=== PATIENT | female | born 1940 | race Hispanic/Latino ===

== ENCOUNTER 2018-07-17 00:52 | Observation (INO) | payer MEDICARE ==
[2018-07-17 00:52] VITALS: BMI 29.2
--- NOTE | 2018-07-17 01:30 | C.PDOC ---
History Of Present Illness 77 year old female with PMHx COPD, breast CA 2013 (not currently on chemotherapy) for evaluation of malaise, cough. Patient reports she was exposed to her daughter in law who had URI at a wedding in [place]. Patient states upon returning home she started feeling sick, productive cough associated with post tussive emesis. Patient states she always feels SOB, has been using her inhaler and nebulizer at home with no relief. Patient denies fever, chills, nausea, diarrhea, rash, weakness, numbness, CP, palpitations. Time Seen by Provider: 07/17/18 00:56 Chief Complaint (Nursing): Shortness Of Breath History Per: Patient History/Exam Limitations: no limitations Onset/Duration Of Symptoms: Days Current Symptoms Are (Timing): Still Present Initiating Event: Upper Respiratory Illness Quality: "Pain" Exacerbating Factor(s): Coughing Current Respiratory Medications: See Home Med List Associated Symptoms: Productive Cough. denies: Fever, Chills Recent travel outside of the [place]: No Additional History Per: Patient Past Medical History Reviewed: Historical Data, Nursing Documentation, Vital Signs Vital Signs: Last Vital Signs Temp 98 F 07/17/18 01:03 Pulse 80 07/17/18 01:03 Resp 18 07/17/18 01:07 BP 125/85 07/17/18 01:03 Pulse Ox 97 07/17/18 01:07 - Medical History PMH: Anxiety, Asthma, COPD, Fractures (hairline fx. foot no surgery), HTN, Hypercholesterolemia, Malignancy (RT BREAST CANCER), Osteoporosis, Peripheral Edema, Pneumonia (1964) Denies: Chronic Kidney Disease Surgical History: No Surg Hx - [facility] Procedures INSERTION OF TOTALLY IMPLANTABLE VASC ACCESS DEVIC (12/09/13) LYMPHATIC STRUCT BIOPSY (11/05/13) PERCUTAN NEEDLE BIOPSY OF BREAST (11/05/13) THORAX SFT TISS XRAY NEC (12/09/13) UNILAT EXTEN SIMP MASTEC (06/17/14) Family History: States: Unknown Family Hx - Social History Hx Tobacco Use: Yes Hx Alcohol Use: Yes Hx Substance Use: No - Immunization History Hx Tetanus Toxoid Vaccination: No Hx Influenza Vaccination: No Hx Pneumococcal Vaccination: No Review Of Systems Constitutional: Negative for: Fever, Chills ENT: Negative for: Nose Discharge, Nose Congestion Cardiovascular: Negative for: Chest Pain, Palpitations Respiratory: Positive for: Cough, Shortness of Breath, Sputum Gastrointestinal: Positive for: Vomiting. Negative for: Nausea, Abdominal Pain, Diarrhea Skin: Negative for: Rash Neurological: Negative for: Weakness, Numbness, Headache, Dizziness Physical Exam - Physical Exam Appears: Non-toxic, No Acute Distress, Other (comfortable ) Skin: Normal Color, Warm, Dry Head: Atraumatic, Tenderness Eye(s): bilateral: Normal Inspection, PERRL, EOMI Ear(s): Bilateral: Normal Oral Mucosa: Moist Throat: Normal, No Erythema, No Exudate Neck: Normal ROM, Supple Chest: Symmetrical Cardiovascular: Rhythm Regular Respiratory: Decreased Breath Sounds (bilateral lower lobes), No Rales, Rhonchi (scattered ), No Wheezing Gastrointestinal/Abdominal: Bowel Sounds (active), Soft, No Tenderness, No Guar ding, No Rebound Extremity: Normal ROM, No Tenderness, No Swelling Neurological/Psych: Oriented x3, Normal Speech, Normal Cognition Gait: Steady ED Course And Treatment - Laboratory Results Result Diagrams: 07/17/18 01:51 07/17/18 01:51 ECG: Interpreted By Me, Viewed By Me ECG Rhythm: Sinus Rhythm Interpretation Of ECG: Normal axis, normal intervals, no ST elevation Rate From EC (BPM) O2 Sat by Pulse Oximetry: 97 (ON RA) Pulse Ox Interpretation: Normal - Radiology CXR: Interpreted by Me, Viewed By Me CXR Interpretation: Yes: Other (unchanged from prior) Medical Decision Making Medical Decision Making: Plan: * EKG * Labs * CXR * Solumedrol 125 mg IVP * Nebulizer treatment Reassess: Patient still has decreased breath sounds, peak flow was 150. Patient will get another breathing treatment . Tylenol was given patient c/o headache due to coughing. Will repeat CXR Patent not improved after 3 breathing treatments, peak flow went down to 100, patient will be admitted for COPD exacerbation 04:32- paged Hospitalist Dr. Pratt cover for Dr. Lopez Dahl who accepts the patient to be admitted to his service Disposition - Disposition Referrals: Jessie Dahl MD [Primary Care Provider] - Forms: [facility] (Czech) - Scribe Statement The provider has reviewed the documentation as recorded by the Scribe Donavan Macdonald All medical record entries made by the Scribe were at my direction and personally dictated by me. I have reviewed the chart and agree that the record accurately reflects my personal performance of the history, physical exam, medical decision making, and the department course for this patient. I have also personally directed, reviewed, and agree with the discharge instructions and disposition.
[2018-07-17 01:54] LABS: BASO # 0.1 K/uL (0.0-0.2); BASO % 0.9 % (0.0-2.0); EOS # 0.8 K/uL (0.0-0.7); EOS % 13.8 % (0.0-4.0); HEMOGLOBIN 14.3 g/dL (11.0-16.0); LYMPH # 1.6 K/uL (1.0-4.3); LYMPH % 28.3 % (20.0-40.0); MEAN CELL VOLUME 97.2 fL (81.0-99.0); MEAN CORPUSCULAR HEMOGLOBIN 33.2 pg (27.0-31.0); MEAN CORPUSCULAR HGB CONC 34.1 g/dL (33.0-37.0); MEAN PLATELET VOLUME 7.9 fL (7.2-11.7); MONO # 0.6 K/uL (0.0-0.8); MONO % 11.2 % (0.0-10.0); NEUT # 2.5 K/uL (1.8-7.0); NEUT % 45.8 % (50.0-75.0); NRBC % 0.1 % (0.0-2.0); RBC 4.32 Mil/uL (3.80-5.20); RED CELL DISTRIBUTION WIDTH 14.2 % (11.5-14.5); WHITE BLOOD COUNT 5.6 K/uL (4.8-10.8)
[2018-07-17 02:06] LABS: ALB/GLOB RATIO 1.5 (1.0-2.1); ALBUMIN 4.3 g/dL (3.5-5.0); ALT/SGPT 32 U/L (9-52); AST/SGOT 25 U/L (14-36); BLOOD UREA NITROGEN 14 mg/dL (7-17); CALCIUM 9.1 mg/dl (8.6-10.4); GFR NON-AFRICAN AMERICAN > 60
[2018-07-17] MEDS ORDERED: Albuterol-Ipratrop 3 mg / 0.5 (3 ml) UD INH STA ×3 (02:07→03:12)
[2018-07-17] MEDS ORDERED: Albuterol-Ipratrop 3 mg / 0.5 (3 ml) UD ONE ×2 (02:10→03:09)
[2018-07-17 02:29] LABS: B-TYPE NATRIURETIC PEPTIDE 47.1 pg/mL (0-900)
--- NOTE | 2018-07-17 05:05 | CP.PCM.HP ---
<Lashae Gallegos P - Last Filed: 07/17/18 10:10> History of Present Illness - History of Present Illness History of Present Illness: H&P for hospitalist service: HPI:77 year old female with PMHx of COPD, HTN, HLD, and R breast cancer presents to ED with complaint of cough for the past month after exposure to a family member with a URI. Cough is productive, initially green sputum, now clear. Cough worsens with laying down and on exertion. Associated symptoms include headache, post-tussive emesis, and bilateral leg weakness. Patient states she is chronically short of breath. Patient has been to her PMD twice in the past month for these symptoms and has been prescribed nebulizer treatments and cough syrup, as well as tried numerous OTC medication without improvement. Patient denies fev er, chills, diaphoresis, dizziness, chest pain, palpitations, cough, and abdominal pain. PMHx: COPD, HTN, HLD, R breast cancer s/p mastectomy, spinal stenosis PSHx: R mastectomy 2013, cataract surgery b/l Meds: Atorvastatin 10mg once daily, Montelukast 10mg once a day, amlodipine/Benazepril 5/50mg once daily, Anastrozole 10mg PO daily, Breo Ellipta 110mcg/25 mcg one puff daily, Ventalin inhaler 2puffs Q6H, L-Lysine 100mg, B complex vatamin, Vitamin D 800mg daily, Magnesium 200mg daily, Ecotrin 81mg Daily, Vatamin D 25mg daily, Aleve gels 440mg once daily for pain. Allergies: NKDA Family Hx: Breast cancer in mother and sisters, Social: former smoker 1ppd for 55 years, quit 4 years ago. Drinks 3 wine spritzers daily, denies drug use. Retired. Walks with a walker. PMD: Dr. Lopez Dahl Code status: Patient states she would like everything done only if there is a chance of recovery. Proxy: SonCorby- number unknown. Present on Admission - Present on Admission Any Indicators Present on Admission: No Review of Systems - Constitutional Constitutional: Headache, Weakness (bilateral leg). absent: Chills, Excessive Sweating, Fever, Night Sweats - EENT Eyes: absent: Change in Vision, Irritation Nose/Mouth/Throat: Dry Mouth. absent: Nasal Congestion, Nasal Discharge, Bleeding Gums - Cardiovascular Cardiovascular: absent: Chest Pain, Chest Pain at Rest, Claudication, Pain Radiating to Arm/Neck/Jaw, Leg Edema - Respiratory Respiratory: Cough, Dyspnea, Dyspnea on Exertion. absent: Hemoptysis - Gastrointestinal Gastrointestinal: Hematochezia. absent: Bloating, Change in Bowel Habits, Cramping, Diarrhea, Loose Stools - Genitourinary Genitourinary: Urinary Incontinence (chronic). absent: Difficulty Urinating, Dysuria, Hematuria - Musculoskeletal Musculoskeletal: absent: Joint Swelling, Myalgias, Numbness - Integumentary Integumentary: absent: Rash, Unusual Bruising, Jaundice - Neurological Neurological: absent: Abnormal Hearing, Abnormal Speech, Dizziness, Numbness, Focal Weakness, Headaches, Loss of Vision Past Patient History - Infectious Disease Hx of Infectious Diseases: None - Past Medical History & Family History Past Medical History?: Yes - Past Social History Smoking Status: Never Smoked - CARDIAC Hx Hypercholesterolemia: Yes Hx Hypertension: Yes Hx Peripheral Edema: Yes - PULMONARY Hx Asthma: Yes Hx Chronic Obstructive Pulmonary Disease (COPD): Yes Hx Pneumonia: Yes (1963) - NEUROLOGICAL Hx Neurological Disorder: No - HEENT Hx HEENT Problems: No - RENAL Hx Chronic Kidney Disease: No - ENDOCRINE/METABOLIC Hx Endocrine Disorders: No - HEMATOLOGICAL/ONCOLOGICAL Hx Cancer: Yes (RT BREAST CA WITH CHEMO AND RADIATION) - INTEGUMENTARY Hx Dermatological Problems: No - MUSCULOSKELETAL/RHEUMATOLOGICAL Hx Fractures: Yes (hairline fx. foot no surgery) Hx Osteoporosis: Yes - GASTROINTESTINAL Hx Gastrointestinal Disorders: No - GENITOURINARY/GYNECOLOGICAL Hx Genitourinary Disorders: No - PSYCHIATRIC Hx Anxiety: Yes Hx Substance Use: No - SURGICAL HISTORY Hx Surgeries: Yes Hx Mastectomy: Yes (RT) - ANESTHESIA Hx Anesthesia: Yes Hx Anesthesia Reactions: No Hx Malignant Hyperthermia: No Meds Allergies/Adverse Reactions: Allergies Allergy/AdvReac Type Severity Reaction Status Date / Time No Known Allergies Allergy Verified 12/04/13 13:47 Physical Exam - Constitutional Appears: Non-toxic, No Acute Distress, Other (smells of alcohol) - Head Exam Head Exam: ATRAUMATIC, NORMOCEPHALIC - Eye Exam Eye Exam: EOMI, Normal appearance, PERRL - ENT Exam ENT Exam: Mucous Membranes Dry - Neck Exam Neck exam: Positive for: Full Rom, Normal Inspection - Respiratory Exam Respiratory Exam: Decreased Breath Sounds. absent: Rales, Rhonchi, Wheezes, Respiratory Distress - Cardiovascular Exam Cardiovascular Exam: RRR, +S1, +S2. absent: Systolic Murmur - GI/Abdominal Exam GI & Abdominal Exam: Normal Bowel Sounds, Soft. absent: Guarding, Rigid, Tenderness - Extremities Exam Extremities exam: Positive for: normal capillary refill, pedal edema (trace pit ting edema bilater LE), pedal pulses present. Negative for: calf tenderness, tenderness - Neurological Exam Neurological exam: Alert, CN II-XII Intact, Oriented x3 - Psychiatric Exam Psychiatric exam: Normal Affect, Normal Mood - Skin Skin Exam: Dry, Intact, Normal Color, Warm Results - Vital Signs Recent Vital Signs: Last Vital Signs Temp 97.8 F 07/17/18 04:22 Pulse 91 H 07/17/18 04:22 Resp 20 07/17/18 04:22 BP 105/59 L 07/17/18 04:22 Pulse Ox 97 07/17/18 04:34 - Labs Result Diagrams: 07/17/18 01:51 07/17/18 01:51 Labs: Laboratory Results - last 24 hr 07/17/18 07/17/18 01:51 01:51 WBC 5.6 RBC 4.32 Hgb 14.3 Hct 42.0 MCV 97.2 MCH 33.2 H MCHC 34.1 RDW 14.2 Plt Count 244 MPV 7.9 Neut % (Auto) 45.8 L Lymph % (Auto) 28.3 [place] % (Auto) 11.2 H Eos % (Auto) 13.8 H Baso % (Auto) 0.9 Neut # (Auto) 2.5 Lymph # (Auto) 1.6 [place] # (Auto) 0.6 Eos # (Auto) 0.8 H Baso # (Auto) 0.1 Sodium 142 Potassium 4.3 Chloride 105 Carbon Dioxide 25 Anion Gap 16 BUN 14 Creatinine 0.7 Est GFR ( Amer) > 60 Est GFR (Non-Af Amer) > 60 Random Glucose 100 Calcium 9.1 Magnesium 2.1 Total Bilirubin 1.2 AST 25 ALT 32 Alkaline Phosphatase 91 Troponin I < 0.0120 NT-Pro-B Natriuret Pep 47.1 Total Protein 7.2 Albumin 4.3 Globulin 2.9 Albumin/Globulin Ratio 1.5 Assessment & Plan - Assessment and Plan (Free Text) Plan: 77 year old female with PMHx of COPD, HTN, HLD, spinal stenosis, and R breast cancer admitted for COPD exacerbation. COPD Exacerbation -Duonebs RQ4H PRN -Methylprednisolone 40mg IVP Q6H -Breo Ellipta 1puff daily, home med -Albuterol HFA 2 puff INH RQ6, home med -Montelukast 10mg PO HS, home med Hypertension -Amlodipine 5mg PO daily, home med -Enalopril 10mg daily, substitute for home med of Benazepril 20mg daily Hyperlipidemia -Crestor 5mg PO HS, substitute for home med of Atorvastatin 10mg daily Hx of R Breast Cancer -anastrozole 1mg daily, home med -s/p mastectomy 2013 Hx of Spinal Stenosis -Naproxen 275mg PO daily PRN Hx of Alcohol use -3 wine spritzers daily -Denies hx of withdrawal -Lorazepam 1mg IVP Q6H PRN -Thiamine 100mg PO daily -Vitamin B complex/Folic acid 1 tab PO daily -CIWA Prophylaxis -Heparin 5000u SC Q8 -cyanocobalamin 100mcg daily, home med -Aspirin 81mg daily, home med Case discussed with attending, Dr. Pratt. <Ricardo Pratt - Last Filed: 07/19/18 19:15> Results - Vital Signs Recent Vital Signs: Last Vital Signs Temp 98.5 F 07/18/18 16:42 Pulse 85 07/18/18 16:42 Resp 20 07/18/18 16:42 BP 128/76 07/18/18 16:42 Pulse Ox 93 L 07/18/18 16:42 - Labs Result Diagrams: 07/18/18 07:36 07/18/18 07:36 Assessment & Plan - Date & Time Date: 07/19/18 (I have seen and examined the patient. I agree with the findings and plan of care as documented by Dr. Gallegos. Patient with COPD exacerbation. Continue home meds. Solumedrol. Nebs. Oxygen as needed. Monitor for acute changes.) Time: 19:14 Attending/Attestation - Attestation I have personally seen and examined this patient.: Yes I have fully participated in the care of the patient.: Yes I have reviewed all pertinent clinical information: Yes
[2018-07-17] MEDS ORDERED: Albuterol-Ipratrop 3 mg / 0.5 (3 ml) UD INH PRN (06:00)
[2018-07-17] MEDS ORDERED: Naproxen 275 mg Tab PO PRN (06:05)
[2018-07-17] MEDS: MethylPREDNISolone 40 mg Vial IVP SCH ×3 (06:23→21:42)
--- NOTE | 2018-07-17 07:39 | RAD ---
Date of service: 07/17/2018 PROCEDURE: CHEST RADIOGRAPH, 1 VIEW HISTORY: SOB COMPARISON: 02/18/2015 FINDINGS: LUNGS: Clear. Study markedly rotated towards the right-accentuating left infrahilar bronchovascular markings PLEURA: No pneumothorax or pleural fluid seen. CARDIOVASCULAR: There is presence of aortic atherosclerotic calcification on x-ray. Heart size normal No pulmonary venous congestion left subclavian port tip superior vena cava OSSEOUS STRUCTURES: Cervical apophyseal joint arthrosis. Thoracic spondylosis. VISUALIZED UPPER ABDOMEN: Normal. OTHER FINDINGS: None. IMPRESSION: No interval pathology noted.
--- NOTE | 2018-07-17 07:42 | CP.PCM.PN ---
<Brian Kat - Last Filed: 07/17/18 19:59> Subjective - Date & Time of Evaluation Date of Evaluation: 07/17/18 Time of Evaluation: 07:42 - Subjective Subjective: Progress note for Hospitalist service Patient seen and examined at bedside. She states that she no longer feels short of breath but continues to have a cough. She states she would like to go home as soon as possible since she helps to care for her son. She states that all her symptoms with her cough started after she got sick at a wedding in [place]. She states that she has had stress incontinence when she coughs. She denies fevers, chills, dizziness, lightheadedness, chest pain, palpitations, abdominal pain, nausea, vomiting ,diarrhea, calf pain or swelling. Objective - Vital Signs/Intake and Output Vital Signs (last 24 hours): Temp Pulse Resp BP Pulse Ox 97.8 F 100 H 20 105/59 L 95 07/17/18 04:22 07/17/18 05:24 07/17/18 04:22 07/17/18 04:22 07/17/18 05:08 - Medications Medications: Current Medications Albuterol (Ventolin Hfa 90 Mcg/Actuation (8 G)) 2 puff INH RQ6 [facility] Albuterol/Ipratropium (Duoneb 3 Mg/0.5 Mg (3 Ml) Ud) 3 ml INH RQ4 PRN PRN Reason: Shortness of Breath Amlodipine Besylate (Norvasc) 5 mg PO DAILY [facility] Anastrozole (Arimidex 1 Mg Tab) 1 mg PO DAILY [facility] Aspirin (Aspirin Chewable) 81 mg PO DAILY [facility] Cyanocobalamin (Vitamin B12 100 Mcg Tab) 100 mcg PO DAILY [facility] Fluticasone/Vilanterol (Breo Ellipta 100-25 Mcg Inh) 1 puff INH RQD [facility] Heparin Sodium (Porcine) (Heparin) 5,000 units SC Q8 [facility] Last Admin: 07/17/18 06:24 Dose: 5,000 units Influenza Virus Vaccine (Fluzone Quad 1146-7602) 60 mcg IM .ONCE ONE Stop: 07/19/18 10:01 Lorazepam (Ativan) 1 mg PO Q6H PRN; Taper PRN Reason: EtOH Withdrawall Stop: 07/22/18 07:59 Methylprednisolone (Solu-Medrol) 40 mg IVP Q6 [facility] Last Admin: 07/17/18 06:23 Dose: 40 mg Montelukast Sodium (Singulair) 10 mg PO HS [facility] Naproxen (Anaprox) 275 mg PO DAILY PRN PRN Reason: Pain, moderate (4-7) Rosuvastatin Calcium (Crestor) 5 mg PO HS [facility] Thiamine HCl (Vitamin B1 Tab) 100 mg PO DAILY [facility] Vitamin B Complex/Folic Acid (Berroca) 1 tab PO DAILY [facility] - Labs Labs: 07/17/18 01:51 07/17/18 01:51 - Constitutional Appears: No Acute Distress - Head Exam Head Exam: ATRAUMATIC, NORMAL INSPECTION - Eye Exam Eye Exam: EOMI - ENT Exam ENT Exam: Mucous Membranes Dry - Neck Exam Neck Exam: Full ROM - Respiratory Exam Respiratory Exam: Decreased Breath Sounds. absent: Rales, Rhonchi, Wheezes, Res piratory Distress, Stridor - Cardiovascular Exam Cardiovascular Exam: REGULAR RHYTHM, +S1, +S2. absent: Gallop, Rubs, Murmur - GI/Abdominal Exam GI & Abdominal Exam: Soft, Normal Bowel Sounds. absent: Firm, Guarding, Rigid, Tenderness, Organomegaly - Extremities Exam Extremities Exam: Normal Capillary Refill. absent: Calf Tenderness, Pedal Edema, Tenderness - Back Exam Back Exam: absent: CVA tenderness (L), CVA tenderness (R) - Neurological Exam Neurological Exam: Alert, Awake, Oriented x3 - Psychiatric Exam Psychiatric exam: Normal Affect, Normal Mood - Skin Skin Exam: Dry, Intact, Warm Additional comments: subdermal port on left upper chest Assessment and Plan - Assessment and Plan (Free Text) Plan: Plan: 77 year old female with PMHx of COPD, HTN, HLD, spinal stenosis, and R breast cancer status admitted for COPD exacerbation. Shortness of breath, likely COPD Exacerbation - Duonebs RQ4H PRN - Solumedrol 40mg IVP Q8H - Breo Ellipta 1puff daily, home med - Albuterol HFA 2 puff INH RQ6, home med - Montelukast 10mg PO HS, home med - Zithromax 500mg IV Q24 Hypertension - Amlodipine 5mg PO daily, home med - Enalapril 10mg daily, substitute for home med of Benazepril 20mg daily - ASA 81mg PO Hyperlipidemia - Crestor 5mg PO HS, substitute for home med of Atorvastatin 10mg daily Hx of R Breast Cancer - anastrozole 1mg daily, home med - s/p right mastectomy 2013 Hx of Spinal Stenosis -Naproxen 275mg PO daily PRN Hx of Alcohol use -3 wine spritzers daily -Denies hx of withdrawal -Lorazepam 1mg IVP Q6H PRN -Thiamine 100mg PO daily -Vitamin B complex/Folic acid 1 tab PO daily -CIWA protocol Prophylaxis -Heparin 5000u SC Q8 Case discussed with Dr. Alan Kat, PGY1 <Chris Phillips - Last Filed: 07/18/18 16:44> Objective - Vital Signs/Intake and Output Vital Signs (last 24 hours): Temp Pulse Resp BP Pulse Ox 97.6 F 95 H 20 110/70 92 L 07/18/18 08:06 07/18/18 16:03 07/18/18 08:06 07/18/18 11:01 07/18/18 13:04 Intake and Output: 07/18/18 07/18/18 06:59 18:59 Intake Total 500 Balance 500 - Medications Medications: Current Medications Albuterol (Ventolin Hfa 90 Mcg/Actuation (8 G)) 2 puff INH RQ6 [facility] Last Admin: 07/18/18 13:40 Dose: 2 puff Albuterol/Ipratropium (Duoneb 3 Mg/0.5 Mg (3 Ml) Ud) 3 ml INH RQ4 PRN PRN Reason: Shortness of Breath Amlodipine Besylate (Norvasc) 5 mg PO DAILY [facility] Last Admin: 07/18/18 10:58 Dose: 5 mg Anastrozole (Arimidex 1 Mg Tab) 1 mg PO DAILY [facility] Last Admin: 07/18/18 11:04 Dose: 1 mg Aspirin (Aspirin Chewable) 81 mg PO DAILY [facility] Last Admin: 07/18/18 10:59 Dose: 81 mg Cyanocobalamin (Vitamin B12 100 Mcg Tab) 100 mcg PO DAILY [facility] Last Admin: 07/18/18 10:58 Dose: 100 mcg Enalapril Maleate (Vasotec) 10 mg PO DAILY [facility] Last Admin: 07/18/18 11:01 Dose: Not Given Fluticasone/Vilanterol (Breo Ellipta 100-25 Mcg Inh) 1 puff INH RQD [facility] Last Admin: 07/18/18 07:58 Dose: 1 puff Heparin Sodium (Porcine) (Heparin) 5,000 units SC Q8 [facility] Last Admin: 07/18/18 14:12 Dose: 5,000 units Azithromycin (Zithromax 500mg In Ns Addvantage) 500 mg in 250 mls @ 167 mls/hr IVPB Q24H [facility]; Protocol Last Admin: 07/17/18 18:34 Dose: 167 mls/hr Lorazepam (Ativan) 1 mg PO Q6 PRN; Taper PRN Reason: EtOH Withdrawall Stop: 07/22/18 07:59 Methylprednisolone (Solu-Medrol) 40 mg IVP Q8 [facility] Last Admin: 07/18/18 14:12 Dose: 40 mg Montelukast Sodium (Singulair) 10 mg PO HS [facility] Last Admin: 07/17/18 21:41 Dose: 10 mg Naproxen (Anaprox) 275 mg PO DAILY PRN PRN Reason: Pain, moderate (4-7) Rosuvastatin Calcium (Crestor) 5 mg PO HS [facility] Last Admin: 07/17/18 21:41 Dose: 5 mg Thiamine HCl (Vitamin B1 Tab) 100 mg PO DAILY [facility] Last Admin: 07/18/18 10:59 Dose: 100 mg Vitamin B Complex/Folic Acid (Berroca) 1 tab PO DAILY [facility] Last Admin: 07/18/18 10:58 Dose: 1 tab - Labs Labs: 07/18/18 07:36 07/18/18 07:36 Attending/Attestation - Attestation I have personally seen and examined this patient.: Yes I have fully participated in the care of the patient.: Yes I have reviewed all pertinent clinical information, including history, physical exam and plan: Yes Notes (Text): seen and examined. COPD exacerbation continue antibiotics and solu medrol patient is hypoxic off oxygen continue oxygen and bronchodilators I agree with the resident's documentation
[2018-07-17] MEDS ORDERED: Fluticasone-Vilanterol 100/25mcg Diskus INH SCH (08:00)
[2018-07-17] MEDS: Albuterol HFA 90 mcg/actuation (8 g) INH SCH (09:00)
[2018-07-17] MEDS ORDERED: Azithromycin 500mg/250ML NS 500 MG/250 ML BAG IVPB SCH (19:00)
[2018-07-18] MEDS: Albuterol HFA 90 mcg/actuation (8 g) INH SCH ×3 (01:46→13:40)
[2018-07-18] MEDS: MethylPREDNISolone 40 mg Vial IVP SCH ×2 (05:39→14:12)
[2018-07-18 07:57] LABS: BASO % 0.3 % (0.0-2.0); HEMOGLOBIN 13.6 g/dL (11.0-16.0); LYMPH # 0.8 K/uL (1.0-4.3); LYMPH % 8.7 % (20.0-40.0); MEAN CELL VOLUME 96.1 fL (81.0-99.0); MEAN CORPUSCULAR HEMOGLOBIN 32.5 pg (27.0-31.0); MEAN CORPUSCULAR HGB CONC 33.8 g/dL (33.0-37.0); MEAN PLATELET VOLUME 8.7 fL (7.2-11.7); MONO # 0.4 K/uL (0.0-0.8); MONO % 4.7 % (0.0-10.0); NEUT # 7.7 K/uL (1.8-7.0); NEUT % 86.3 % (50.0-75.0); PLATELET COUNT 229 K/uL (130-400); RBC 4.18 Mil/uL (3.80-5.20); RED CELL DISTRIBUTION WIDTH 14.3 % (11.5-14.5)
[2018-07-18 08:00] LABS: WHITE BLOOD COUNT 8.9 K/uL (4.8-10.8)
[2018-07-18 08:07] VITALS: RESP 20
[2018-07-18 08:17] LABS: ALB/GLOB RATIO 1.4 (1.0-2.1); ALBUMIN 3.8 g/dL (3.5-5.0); ALT/SGPT 33 U/L (9-52); AST/SGOT 17 U/L (14-36); BLOOD UREA NITROGEN 17 mg/dL (7-17); CALCIUM 8.9 mg/dl (8.6-10.4); GFR NON-AFRICAN AMERICAN > 60
[2018-07-18 09:01] LABS: LYMPHOCYTE 8 % (20-40); MONOCYTE 6 % (0-10); NEUTROPHIL 86 % (50-75); TOTAL CELLS COUNTED 100
[2018-07-18 09:02] LABS: PLATELET ESTIMATE NORMAL (NORMAL)
--- NOTE | 2018-07-18 09:24 | CP.PCM.PN ---
Subjective - Date & Time of Evaluation Date of Evaluation: 07/18/18 Time of Evaluation: 09:24 Objective - Vital Signs/Intake and Output Vital Signs (last 24 hours): Temp Pulse Resp BP Pulse Ox 97.6 F 76 20 108/66 95 07/18/18 08:06 07/18/18 08:06 07/18/18 08:06 07/18/18 08:06 07/18/18 08:06 Intake and Output: 07/18/18 07/18/18 06:59 18:59 Intake Total 500 Balance 500 - Medications Medications: Current Medications Albuterol (Ventolin Hfa 90 Mcg/Actuation (8 G)) 2 puff INH RQ6 [facility] Last Admin: 07/18/18 07:59 Dose: 2 puff Albuterol/Ipratropium (Duoneb 3 Mg/0.5 Mg (3 Ml) Ud) 3 ml INH RQ4 PRN PRN Reason: Shortness of Breath Amlodipine Besylate (Norvasc) 5 mg PO DAILY [facility] Last Admin: 07/17/18 10:59 Dose: 5 mg Anastrozole (Arimidex 1 Mg Tab) 1 mg PO DAILY [facility] Last Admin: 07/17/18 13:07 Dose: 1 mg Aspirin (Aspirin Chewable) 81 mg PO DAILY [facility] Last Admin: 07/17/18 10:59 Dose: 81 mg Cyanocobalamin (Vitamin B12 100 Mcg Tab) 100 mcg PO DAILY [facility] Last Admin: 07/17/18 10:59 Dose: 100 mcg Enalapril Maleate (Vasotec) 10 mg PO DAILY [facility] Last Admin: 07/17/18 10:59 Dose: 10 mg Fluticasone/Vilanterol (Breo Ellipta 100-25 Mcg Inh) 1 puff INH RQD [facility] Last Admin: 07/18/18 07:58 Dose: 1 puff Heparin Sodium (Porcine) (Heparin) 5,000 units SC Q8 [facility] Last Admin: 07/18/18 05:38 Dose: 5,000 units Azithromycin (Zithromax 500mg In Ns Addvantage) 500 mg in 250 mls @ 167 mls/hr IVPB Q24H [facility]; Protocol Last Admin: 07/17/18 18:34 Dose: 167 mls/hr Influenza Virus Vaccine (Fluzone Quad [id number]) 60 mcg IM .ONCE ONE Stop: 07/19/18 10:01 Lorazepam (Ativan) 1 mg PO Q6 PRN; Taper PRN Reason: EtOH Withdrawall Stop: 07/22/18 07:59 Methylprednisolone (Solu-Medrol) 40 mg IVP Q8 [facility] Last Admin: 07/18/18 05:39 Dose: 40 mg Montelukast Sodium (Singulair) 10 mg PO HS [facility] Last Admin: 07/17/18 21:41 Dose: 10 mg Naproxen (Anaprox) 275 mg PO DAILY PRN PRN Reason: Pain, moderate (4-7) Rosuvastatin Calcium (Crestor) 5 mg PO HS [facility] Last Admin: 07/17/18 21:41 Dose: 5 mg Thiamine HCl (Vitamin B1 Tab) 100 mg PO DAILY [facility] Last Admin: 07/17/18 10:59 Dose: 100 mg Vitamin B Complex/Folic Acid (Berroca) 1 tab PO DAILY [facility] Last Admin: 07/17/18 10:59 Dose: 1 tab - Labs Labs: 07/18/18 07:36 07/18/18 07:36
[2018-07-18] MEDS ORDERED: Influenza Vaccine 60 MCG/0.5 ML SYR (3 yr & up) IM ONE (15:40)
[2018-07-18 16:43] VITALS: BP 128/76; PULSE 85; TEMP 98.5; O2SAT 93
--- NOTE | 2018-07-18 17:09 | CP.PCM.DIS ---
<Brian Kat - Last Filed: 07/18/18 20:07> Provider - Provider Date of Admission: 07/17/18 04:32 Attending physician: Ricardo Pratt MD Primary care physician: Jessie Dahl MD Time Spent in preparation of Discharge (in minutes): 35 Hospital Course - Lab Results Lab Results: Most Recent Lab Values WBC 8.9 K/uL (4.8-10.8) D 07/18/18 07:36 RBC 4.18 Mil/uL (3.80-5.20) 07/18/18 07:36 Hgb 13.6 g/dL (11.0-16.0) 07/18/18 07:36 Hct 40.2 % (34.0-47.0) 07/18/18 07:36 MCV 96.1 fL (81.0-99.0) 07/18/18 07:36 MCH 32.5 pg (27.0-31.0) H 07/18/18 07:36 MCHC 33.8 g/dL (33.0-37.0) 07/18/18 07:36 RDW 14.3 % (11.5-14.5) 07/18/18 07:36 Plt Count 229 K/uL (130-400) 07/18/18 07:36 MPV 8.7 fL (7.2-11.7) 07/18/18 07:36 Neut % (Auto) 86.3 % (50.0-75.0) H 07/18/18 07:36 Lymph % (Auto) 8.7 % (20.0-40.0) L 07/18/18 07:36 Moody % (Auto) 4.7 % (0.0-10.0) 07/18/18 07:36 Eos % (Auto) 0.0 % (0.0-4.0) 07/18/18 07:36 Baso % (Auto) 0.3 % (0.0-2.0) 07/18/18 07:36 Neut # (Auto) 7.7 K/uL (1.8-7.0) H 07/18/18 07:36 Lymph # (Auto) 0.8 K/uL (1.0-4.3) L 07/18/18 07:36 Moody # (Auto) 0.4 K/uL (0.0-0.8) 07/18/18 07:36 Eos # (Auto) 0.0 K/uL (0.0-0.7) 07/18/18 07:36 Baso # (Auto) 0.0 K/uL (0.0-0.2) 07/18/18 07:36 Neutrophils % (Manual) 86 % (50-75) H 07/18/18 07:36 Lymphocytes % (Manual) 8 % (20-40) L 07/18/18 07:36 Monocytes % (Manual) 6 % (0-10) 07/18/18 07:36 Platelet Estimate Normal (NORMAL) 07/18/18 07:36 RBC Morphology Normal 07/18/18 07:36 Sodium 137 mmol/L (132-148) 07/18/18 07:36 Potassium 4.0 mmol/L (3.6-5.2) 07/18/18 07:36 Chloride 106 mmol/L (98-107) 07/18/18 07:36 Carbon Dioxide 22 mmol/L (22-30) 07/18/18 07:36 Anion Gap 13 (10-20) 07/18/18 07:36 BUN 17 mg/dL (7-17) 07/18/18 07:36 Creatinine 0.6 mg/dL (0.7-1.2) L 07/18/18 07:36 Est GFR ( Amer) > 60 07/18/18 07:36 Est GFR (Non-Af Amer) > 60 07/18/18 07:36 Random Glucose 145 mg/dL (65-105) H 07/18/18 07:36 Calcium 8.9 mg/dl (8.6-10.4) 07/18/18 07:36 Phosphorus 4.0 mg/dL (2.5-4.5) 07/18/18 07:36 Magnesium 2.3 mg/dL (1.6-2.3) 07/18/18 07:36 Total Bilirubin 1.1 mg/dL (0.2-1.3) 07/18/18 07:36 AST 17 U/L (14-36) 07/18/18 07:36 ALT 33 U/L (9-52) 07/18/18 07:36 Alkaline Phosphatase 92 U/L (38-126) 07/18/18 07:36 Troponin I < 0.0120 ng/mL (0.00-0.120) 07/17/18 01:51 NT-Pro-B Natriuret Pep 47.1 pg/mL (0-900) 07/17/18 01:51 Total Protein 6.4 g/dL (6.3-8.3) 07/18/18 07:36 Albumin 3.8 g/dL (3.5-5.0) 07/18/18 07:36 Globulin 2.6 gm/dL (2.2-3.9) 07/18/18 07:36 Albumin/Globulin Ratio 1.4 (1.0-2.1) 07/18/18 07:36 - Hospital Course Hospital Course: On admission: HPI:77 year old female with PMHx of COPD, HTN, HLD, and R breast cancer presents to ED with complaint of cough for the past month after exposure to a family member with a URI. Cough is productive, initially green sputum, now clear. Cough worsens with laying down and on exertion. Associated symptoms include headache, post-tussive emesis, and bilateral leg weakness. Patient states she is chronically short of breath. Patient has been to her PMD twice in the past month for these symptoms and has been prescribed nebulizer treatments and cough syrup, as well as tried numerous OTC medication without improvement. Patient denies fever, chills, diaphoresis, dizziness, chest pain, palpitations, cough, and abdominal pain. Hospital course: Patient was admitted for evaluation of shortness of breath, likely COPD exacerbation. Patient was given Solumedrol, Duonebs, Breo/Ellipta, Montelukast, Zithromax with improvement of her symptoms. She remained afebrile and was not noted to have elevated white count. BNP was not elevated at 47, and troponin x1 was negative. On discharge, she was able to walk without experiencing shortness of breath or drop in oxygen saturation. For her history of hypertension, she was continued on her home dose of Amlodipine and Enalapril. She also received ASA 81mg daily. She was treated with Crestor for her hyperlipidemia. Given her history of breast cancer, she was continued on Anastrozole. Patient admitted to drinking 3 wine spritzers daily, however did not experience any withdrawal symptoms during hospitalization. Patient was placed on CIWA protocol and given Thiamine, Folic acid. On discharge, patient was medically stable and stated she no longer experienced shortness of breath or chest pain. Discharge instructions: Please follow up with your primary care provider Dr. Lopez Dahl in 2 weeks for further evaluation. You may continue your home medications. Please return to the ED if you experience chest pain, shortness of breath, palpitations. Please follow up with your Oncologist Dr. Cortes for your history of breast cancer. Prescriptions: Zithromax 500mg by mouth once daily for 5 days. Disp # 5 (five) Prednisone 20mg by mouth once daily for 5 days. Disp #5 (five) Discharge Exam - Head Exam Head Exam: ATRAUMATIC, NORMAL INSPECTION - Eye Exam Eye Exam: EOMI - ENT Exam ENT Exam: Mucous Membranes Moist - Respiratory Exam Respiratory Exam: Decreased Breath Sounds. absent: Rales, Rhonchi, Wheezes, Respiratory Distress, Stridor Additional comments: subdermal port in left chest wall - Cardiovascular Exam Cardiovascular Exam: REGULAR RHYTHM, +S1, +S2. absent: Gallop, Rubs, Systolic Murmur - GI/Abdominal Exam GI & Abdominal Exam: Normal Bowel Sounds, Soft. absent: Distended, Firm, Guarding, Hernia, Rigid, Tenderness - Extremities Exam Extremities exam: normal capillary refill, pedal pulses present Additional comments: no calf tenderness, no pedal edema - Neurological Exam Neurological exam: Alert, CN II-XII Intact, Oriented x3 - Psychiatric Exam Psychiatric exam: Normal Affect, Normal Mood - Skin Skin Exam: Dry, Intact, Warm Discharge Plan - Discharge Medications Prescriptions: Azithromycin [Zithromax] 500 mg PO DAILY 5 Days #5 tablet RX: predniSONE [predniSONE Tab] 20 mg PO DAILY #5 tab - Follow Up Plan Condition: STABLE Disposition: HOME/ ROUTINE Instructions: Azithromycin (Systemic), Acute Bronchitis, Adult (DC), COPD Including Emphysema (DC), Anxiety, Adult (DC), Prednisone Additional Instructions: Please follow up with your primary care provider Dr. Lopez Dahl in 2 weeks for further evaluation. You may continue your home medications. Please return to the ED if you experience chest pain, shortness of breath, palpitations. Please follow up with your Oncologist Dr. Cortes for your history of breast cancer. Prescriptions: Zithromax 500mg by mouth once daily for 5 days. Disp # 5 (five) Prednisone 20mg by mouth once daily for 5 days. Disp #5 (five) Referrals: Jessie Dahl MD [Primary Care Provider] - <Chris Phillips - Last Filed: 07/19/18 15:43> Provider - Provider Date of Admission: 07/17/18 04:32 Attending physician: Ricardo Pratt MD Primary care physician: Jessie Dahl MD Hospital Course - Lab Results Lab Results: Most Recent Lab Values WBC 8.9 K/uL (4.8-10.8) D 07/18/18 07:36 RBC 4.18 Mil/uL (3.80-5.20) 07/18/18 07:36 Hgb 13.6 g/dL (11.0-16.0) 07/18/18 07:36 Hct 40.2 % (34.0-47.0) 07/18/18 07:36 MCV 96.1 fL (81.0-99.0) 07/18/18 07:36 MCH 32.5 pg (27.0-31.0) H 07/18/18 07:36 MCHC 33.8 g/dL (33.0-37.0) 07/18/18 07:36 RDW 14.3 % (11.5-14.5) 07/18/18 07:36 Plt Count 229 K/uL (130-400) 07/18/18 07:36 MPV 8.7 fL (7.2-11.7) 07/18/18 07:36 Neut % (Auto) 86.3 % (50.0-75.0) H 07/18/18 07:36 Lymph % (Auto) 8.7 % (20.0-40.0) L 07/18/18 07:36 Moody % (Auto) 4.7 % (0.0-10.0) 07/18/18 07:36 Eos % (Auto) 0.0 % (0.0-4.0) 07/18/18 07:36 Baso % (Auto) 0.3 % (0.0-2.0) 07/18/18 07:36 Neut # (Auto) 7.7 K/uL (1.8-7.0) H 07/18/18 07:36 Lymph # (Auto) 0.8 K/uL (1.0-4.3) L 07/18/18 07:36 Moody # (Auto) 0.4 K/uL (0.0-0.8) 07/18/18 07:36 Eos # (Auto) 0.0 K/uL (0.0-0.7) 07/18/18 07:36 Baso # (Auto) 0.0 K/uL (0.0-0.2) 07/18/18 07:36 Neutrophils % (Manual) 86 % (50-75) H 07/18/18 07:36 Lymphocytes % (Manual) 8 % (20-40) L 07/18/18 07:36 Monocytes % (Manual) 6 % (0-10) 07/18/18 07:36 Platelet Estimate Normal (NORMAL) 07/18/18 07:36 RBC Morphology Normal 07/18/18 07:36 Sodium 137 mmol/L (132-148) 07/18/18 07:36 Potassium 4.0 mmol/L (3.6-5.2) 07/18/18 07:36 Chloride 106 mmol/L (98-107) 07/18/18 07:36 Carbon Dioxide 22 mmol/L (22-30) 07/18/18 07:36 Anion Gap 13 (10-20) 07/18/18 07:36 BUN 17 mg/dL (7-17) 07/18/18 07:36 Creatinine 0.6 mg/dL (0.7-1.2) L 07/18/18 07:36 Est GFR ( Amer) > 60 07/18/18 07:36 Est GFR (Non-Af Amer) > 60 07/18/18 07:36 Random Glucose 145 mg/dL (65-105) H 07/18/18 07:36 Calcium 8.9 mg/dl (8.6-10.4) 07/18/18 07:36 Phosphorus 4.0 mg/dL (2.5-4.5) 07/18/18 07:36 Magnesium 2.3 mg/dL (1.6-2.3) 07/18/18 07:36 Total Bilirubin 1.1 mg/dL (0.2-1.3) 07/18/18 07:36 AST 17 U/L (14-36) 07/18/18 07:36 ALT 33 U/L (9-52) 07/18/18 07:36 Alkaline Phosphatase 92 U/L (38-126) 07/18/18 07:36 Troponin I < 0.0120 ng/mL (0.00-0.120) 07/17/18 01:51 NT-Pro-B Natriuret Pep 47.1 pg/mL (0-900) 07/17/18 01:51 Total Protein 6.4 g/dL (6.3-8.3) 07/18/18 07:36 Albumin 3.8 g/dL (3.5-5.0) 07/18/18 07:36 Globulin 2.6 gm/dL (2.2-3.9) 07/18/18 07:36 Albumin/Globulin Ratio 1.4 (1.0-2.1) 07/18/18 07:36 Attending/Attestation - Attestation I have personally seen and examined this patient.: Yes I have fully participated in the care of the patient.: Yes I have reviewed all pertinent clinical information, including history, physical exam and plan: Yes
--- NOTE | 2018-07-18 23:57 | CARD ---
APPROVED REPORT Date of service: 07/17/2018 EKG Measurement Heart [id number] <Conclusion> Normal sinus rhythm Normal ECG
[2018-07-19] MEDS ORDERED: Influenza Vaccine 60 MCG/0.5 ML SYR (3 yr & up) IM ONE (10:00)
== END 2018-07-18 17:23 | disposition home or self-care (01) ==
LOC: SUPCPDRO 00:52 → C.ER 00:52 → C.5S 04:32
PROVIDERS: ADMIT Family Medicine; ATTEND Family Medicine
DX: J44.1 Chronic obstructive pulmonary disease with (acute) exacerbation (principal); I10 Essential (primary) hypertension; E78.5 Hyperlipidemia, unspecified; Z85.3 Personal history of malignant neoplasm of breast; Z87.891 Personal history of nicotine dependence; M81.0 Age-related osteoporosis without current pathological fracture; F41.9 Anxiety disorder, unspecified
CPT/HCPCS: 36415; 71045; 80053; 83735; 83880; 84100; 84484; 85025; 93005; 94640; 96374; 99285; G0378; J0456; J1644; J2920; J2930

== ENCOUNTER 2018-12-24 09:26 | Outpatient (CLI) | payer MEDICARE | END 2018-12-24 09:27 | disposition home or self-care (01) | LOC: C.PAT 09:26 | DX: R19.00 Intra-abdominal and pelvic swelling, mass and lump, unspecified site (principal) ==

== ENCOUNTER 2018-12-31 12:21 | Day surgery (SDC) | payer MEDICARE ==
[2018-12-24 10:19] VITALS: BMI 31.1
[~2018-12-31 12:21] MED LIST: HYDROmorphone 0.5 mg/0.5 ml ISec IVP PRN
[2018-12-31] MEDS ORDERED: Lactated Ringer's 1,000 ML IV ONE (14:05)
[2018-12-31] MEDS ORDERED: Bupivacaine 0.25% 20 ML INJ IJ ONE (14:08)
[2018-12-31] MEDS ORDERED: ceFAZolin 1 gm in NS 2 GM/200 ML BAG IVPB ONE (14:09)
[2018-12-31] MEDS ORDERED: Lidocaine/Epinephrine 1% 1:100000 10 ML IJ ONE (14:09)
[2018-12-31] MEDS ORDERED: Midazolam 2 MG/2 ML VIAL ONE ×2 (14:10→14:15)
--- NOTE | 2018-12-31 14:57 | PCM.SURG1 ---
Surgeon's Initial Post Op Note - Surgeon's Notes Surgeon: Dr. Zeng Staff Research Associate: Francie Roman Type of Anesthesia: Local Pre-Operative Diagnosis: abdominal wall mass Operative Findings: see opertive report Post-Operative Diagnosis: abdominal wall mass Operation Performed: wide local excision of abdominal wall mass Specimen/Specimens Removed: abdominal wall mass Estimated Blood Loss: EBL {In ML}: 10 Blood Products Given: N/A Drains Used: No Drains Post-Op Condition: Good Date of Surgery/Procedure: 12/31/18 Time of Surgery/Procedure: 14:46
[2018-12-31 16:02] VITALS: RESP 18
[2018-12-31 17:11] VITALS: BP 118/68; PULSE 76; TEMP 98; O2SAT 96
--- NOTE | 2019-01-01 03:58 | OP ---
PROCEDURE DATE: 12/31/2018 PREOPERATIVE DIAGNOSIS: Abdominal wall mass, possible malignancy. POSTOPERATIVE DIAGNOSIS: Abdominal wall mass, possible malignancy. PROCEDURE DONE: 1. Excision of abdominal wall mass, approximately 5 x 4 cm size. 2. Excision of the redundant skin of the abdominal wall and subcutaneous tissue, approximately 5 x 3 cm size. 3. Layered closure of the wound complex, approximately 6 x 4 cm size. TYPE OF ANESTHESIA: Local anesthesia plus sedation. ESTIMATED BLOOD LOSS: Around 10 mL. DRAINS: None. PATHOLOGY: Abdominal wall lesion was sent to the pathology. COMPLICATIONS: None. INTRAOPERATIVE FINDINGS: The patient had a periumbilical large abdominal wall mass, approximately 5 x 4 cm in size, side of the umbilicus. DESCRIPTION OF PROCEDURE: On intraoperative steps, this is a 78-year-old female who had a past medical history of the breast cancer, and the patient had abdominal wall mass with skin puckering, and the patient was consented for the wide local excision of the mass, brought to the OR, and placed supine on the operating table. After induction of anesthesia, the abdomen was prepped and draped in usual sterile fashion. The local anesthesia was injected. Elliptical incision was made, and upper and lower flap was created. The redundant skin and subcutaneous tissue excised with mass, and it was sent off the table for the pathology. The medial, lateral, superior, inferior dissection was done and mass was completed excised, and the hemostasis was achieved. The mass was not infiltrating into the abdominal wall, and after proper hemostasis, the wound was irrigated. Now, the multilayer closure was done. The upper and lower flaps were sutured with underlying fascia as well as the deep subcu with 2-0 Vicryl, subcu with a 3-0 Vicryl, and skin with a 4-0 Monocryl, and dry sterile dressing was applied. The patient tolerated the procedure well. Count of instrument and gauze was correct. There was no apparent complication. The patient was extubated in OR and sent to the postanesthesia care unit in stable condition. Yusuf Zeng MD
== END 2018-12-31 16:40 | disposition home or self-care (01) ==
LOC: C.SDS 12:21
PROVIDERS: ATTEND Surgery Surgical Critical Care
DX: C79.2 Secondary malignant neoplasm of skin (principal); Z85.3 Personal history of malignant neoplasm of breast; I10 Essential (primary) hypertension; J45.909 Unspecified asthma, uncomplicated
CPT/HCPCS: 11604; 13101; 88307; J0690; J2250; J3010; J7120